=== PATIENT | male | born 1965 | race African-American/Black ===

== ENCOUNTER 2016-05-24 20:02 | Inpatient (IN) | payer OTHER ==
[~2016-05-24] VITALS: Ht 170.2 cm; Wt 103.0 kg
[~2016-05-24 20:02] MED LIST: ADVAIR 500/501 DISK IH; ALDACTONE25 MG PO; AMIODARONE HCL200 MG PO; AMMONIUM LACTA140 GM TP; AMOX TR-K CLV1 EAC4 PO; ASCORBIC ACID500 MG PO; ASPIR 8181 M1 PO; ATIVAN0.5 MG PO; ATROVENT 00.5 MG/2.5 IH; AUGMENTIN500 MG PO; AZITHROMYCIN500 M1 PO; Aldactone PO; Aranesp SC; BACTRIM,SEPT1 TABLET PO; Betapace,Sorine PO; CALCIUM 500 MG1 EACH PO; CALCIUM500 M4 PO; CARDIZEM CD,CA180 MG PO; CARDIZEM CD,CA240 MG PO; CARDIZEM CD180 MG PO; CARDIZEM CD300 MG PO; CARDIZEM LA180 MG PO; CARDIZEM60 MG PO; CARVEDILOL12.5 MG PO; CARVEDILOL25 MG PO; CARVEDILOL3.125 MG PO; CARVEDILOL6.25 MG PO; CELEXA20 MG PO; COLACE100 MG PO; COMBIVENT200 INHALA IH; Cardizem CD,Cartia X PO; Chronulac,Cephulac,E PO; Combivent IH; Coreg PO; DESYREL100 MG PO; DIGITEK125 MC2 PO; DIGITEK250 MC2 PO; DIGOX125 MCG PO; DIGOXIN125 MCG PO; DIGOXIN250 MCG PO; DULCOLAX10 MG PR; DULCOLAX5 MG PO; DUONEB 2.5-0.5 M3 ML AEROSOL; ECOTRIN325 MG PO; Ecotrin PO; FEOSOL325 MG PO; FERROUS SULFAT325 MG PO; FLEET ENEMA-AD118 ML PR; FLEET MINERAL133 ML PR; FLORASTOR250 MG PO; FOLIC ACID1 MG PO; FUROSEMIDE20 MG PO; FUROSEMIDE40 MG PO; Feosol PO; HEPARIN LO IV; HYDROPHOR OINT454 GM TP; IMODIUM MS REL1 EACH PO; INCRUSE ELLI62.5 MCG IH; IRON18 MG PO; IRON325 M1 PO; K-DUR20 MEQ PO; LASIX20 MG PO; LASIX40 MG PO; LEVAQUIN500 MG PO; LEVOFLOXACIN750 MG PO; LEVOTHYROXINE125 MCG PO; LISINOPRIL2.5 MG PO; LISINOPRIL5 MG PO; LITE COAT ASPI325 M1 PO; LOPRESSOR25 MG PO; LOVENOX40 MG/0.4 SC; MAG-OXIDE400 MG PO; METOPROLOL TART25 MG PO; METOPROLOL TART50 MG PO; METRONIDAZOLE500 MG PO; MILK OF MAGN PO; MUCINEX DM ER1 EACH PO; MUCINEX600 MG PO; NIFEREX-150,FE150 MG PO; OCEAN NASAL 0.645 ML BOTH NARES; OXYCODONE HCL15 MG PO; OXYCODONE HCL5 MG PO; OXYCODONE-APAP1 EACH PO; PANTOPRAZOLE SO40 MG PO; PERCOCET 10/1 TABLET PO; PERIDEX1 ML MM; PHILLIPS'400 MG/5 M PO; PREDNISONE10 MG PO; PREDNISONE20 MG PO; PROAIR HFA8.5 GM IH; PROTONIX40 MG PO; PROVENTIL,2.5 MG/3 M IH; Provigil PO; ROXICODONE15 MG PO; SALINE NASAL SP45 ML BOTH NARES; SALINE NOSE SPR45 M1 BOTH NARES; SEROQUEL50 MG PO; SERTRALINE HCL100 MG PO; SPIRIVA RESPIMAT4 GM IH; SPIRIVA1 INHALATI IH; SPIRONOLACTONE25 MG PO; SYMBICORT60 INHALA1 IH; SYMBICORT60 INHALAT IH; TIAZAC300 MG PO; TRAZODONE HCL50 MG PO; TYLENOL REGULA325 MG PO; ULTRA A-D2 MG PO; VANCOMYCIN1 GM/150 M IV; VANCOMYCIN750 MG/151 IV; VENTOLIN HFA18 GM IH; VITAMIN D-32000 UNI2 PO; VITAMIN D22000 UNIT PO; VITAMIN D31000 UNI2 PO; VITAMIN D31000 UNIT PO; XARELTO20 MG PO; Xopenex HFA Inhaler IH; ZESTRIL2.5 MG PO; ZITHROMAX250 MG PO; ZOFRAN4 MG PO; ZOLOFT100 MG PO; ZOLOFT25 MG PO; ZOLOFT50 MG PO; Zyvox PO
[2016-05-24 20:37] LABS: HEMATOCRIT 24.4 % (38.0-50.0); MCH 22.8 PG (29.0-34.0); MCHC 29.5 G/DL (30.0-36.0); MCV 77.2 FL (86-99); MEAN PLAT.VOLUME 9.6 uM^3 (9.0-12.4); NRBC (%) 0.1 /100 WBC (0-0); PLATELET COUNT 247 K/uL (156-360); RBC DIS.WIDTH-CV 17.5 % (11.8-14.6); RBC DIS.WIDTH-SD 48.8 % (39-53); RED BLOOD COUNT 3.16 M/uL (4.00-5.50); WHITE BLOOD COUNT 26.3 K/uL (4.1-10.2)
[2016-05-24 20:46] LABS: CHLORIDE 95 mEq/L (99-109); POTASSIUM 3.7 mEq/L (3.7-5.4); SODIUM 136 mEq/L (136-147)
[2016-05-24 20:48] LABS: GLUCOSE 101 mg/dL (70-99)
[2016-05-24 20:49] LABS: ANION GAP 9 MEQ/L (2-14)
[2016-05-24 20:52] LABS: GFR ESTIMATE (CALCULATED) > 59 mL/min/
[2016-05-24 20:53] LABS: UREA NITROGEN (BUN) 16 mg/dL (9-23)
[2016-05-24 20:54] LABS: D-DIMER ELISA 2.52 mg/L FEU (< 0.57)
[2016-05-24 20:59] LABS: TROP-I INTERPRETATION NEGATIVE; TROPONIN-I 0.01 ng/mL (0.0-0.30)
[2016-05-24] MEDS ORDERED: ZOLOFT100 MG PO (22:25)
[2016-05-24] MEDS ORDERED: AMIODARONE HCL200 MG PO (22:26)
[2016-05-24] MEDS ORDERED: DALIRESP500 MCG PO (22:26)
[2016-05-25] VITALS (13 sets, daily range): BP systolic 91–119; BP diastolic 49–69
[2016-05-25 01:39] LABS: C DIFF TOXIN NEGATIVE (NEGATIVE); PROBE CHECK PASS; SPECIMEN PROCESSING CONTROL PASS
[2016-05-25 03:08] LABS: METH RESISTANT S AUREUS PCR POSITIVE (NEGATIVE)
[2016-05-25 03:10] LABS: PROBE CHECK PASS
[2016-05-25 13:10] LABS: MEAN PLAT.VOLUME 10.9 uM^3 (9.0-12.4); PLATELET COUNT 208 K/uL (156-360)
[2016-05-25 13:35] LABS: MCH 23.8 PG (29.0-34.0); MCHC 29.7 G/DL (30.0-36.0); MCV 80.2 FL (86-99); NRBC (%) 0.1 /100 WBC (0-0); RBC DIS.WIDTH-CV 17.7 % (11.8-14.6); RBC DIS.WIDTH-SD 51.7 % (39-53); RED BLOOD COUNT 3.74 M/uL (4.00-5.50)
[2016-05-25 13:36] LABS: ANION GAP 7 MEQ/L (2-14); CHLORIDE 92 MEQ/L (99-109); GFR ESTIMATE (CALCULATED) > 59 mL/min/; GLUCOSE 141 mg/dL (70-99); SAMPLE HEMOLYSIS CHECK 0; SAMPLE ICTERIC CHECK 0; SAMPLE LIPEMIA CHECK 0; SODIUM 131 MEQ/L (136-147); UREA NITROGEN (BUN) 19 mg/dL (9-23)
[2016-05-25 13:40] LABS: WHITE BLOOD COUNT 34.3 K/uL (4.1-10.2)
[2016-05-25 15:45] LABS: IRON 12 MCG/DL (35-150)
[2016-05-25 16:10] LABS: INTER. NORMALIZED RATIO 1.2; PROTHROMBIN TIME 12.6 (9.2-11.2); PTT 41.4 (25-32)
[2016-05-25 21:43] LABS: INFLUENZA A VIRAL ANTIGEN NEGATIVE; INFLUENZA B VIRAL ANTIGEN NEGATIVE
[2016-05-26 04:38] VITALS: BP 115/55
[2016-05-26 07:15] VITALS: BP 127/59
[2016-05-26 07:19] LABS: ALKALINE PHOSPHATASE 114 IU/L (3-129); ANION GAP 6 MEQ/L (2-14); CHLORIDE 91 MEQ/L (99-109); GFR ESTIMATE (CALCULATED) > 59 mL/min/; GLUCOSE 115 mg/dL (70-99); MAGNESIUM 1.7 mg/dl (1.3-2.7); POTASSIUM 4.4 MEQ/L (3.7-5.4); SAMPLE HEMOLYSIS CHECK 0; SAMPLE ICTERIC CHECK 0; SAMPLE LIPEMIA CHECK 0; SODIUM 133 MEQ/L (136-147); TOTAL BILIRUBIN 0.3 MG/DL (0.0-1.0); UREA NITROGEN (BUN) 27 mg/dL (9-23)
[2016-05-26 07:45] LABS: EOSINOPHIL (%) 0 % (0-5); HEMATOCRIT 25.5 % (38.0-50.0); IMMATURE GRANULOCYTE (%) 2.5 % (0.0-0.7); IMMATURE GRANULOCYTE COUNT 0.5 K/uL; INSTRUMENT ABS NEUTROPHIL CT 17.7 K/uL; LYMPHOCYTE COUNT 0.4 K/uL (1.0-2.8); MCH 23.1 PG (29.0-34.0); MCHC 29.4 G/DL (30.0-36.0); MCV 78.7 FL (86-99); MEAN PLAT.VOLUME 10.8 uM^3 (9.0-12.4); MONOCYTE (%) 3.1 % (3-12); MONOCYTE COUNT 0.6 K/uL (0-0.8); NEUTROPHIL (%) 92.4 % (45-76); NEUTROPHIL COUNT 17.7 K/uL (1.8-6.4); NRBC (%) 0.2 /100 WBC (0-0); PLAT.SUFFICIENCY ADEQUATE; PLATELET COUNT 200 K/uL (156-360); RBC DIS.WIDTH-CV 18.1 % (11.8-14.6); RBC DIS.WIDTH-SD 52.2 % (39-53); RED BLOOD COUNT 3.24 M/uL (4.00-5.50)
[2016-05-26 07:58] LABS: INTERNAL CONTROL VALID? YES
[2016-05-26 08:02] LABS: WHITE BLOOD COUNT 19.1 K/uL (4.1-10.2)
[2016-05-26 12:22] VITALS: BP 130/62
[2016-05-26 16:45] VITALS: BP 119/63
[2016-05-26 19:43] VITALS: BP 124/60
[2016-05-26 22:45] VITALS: BP 116/57
[2016-05-27] VITALS (7 sets, daily range): BP systolic 108–140; BP diastolic 55–76
[2016-05-27 06:24] LABS: HEMATOCRIT 25.1 % (38.0-50.0); MCHC 29.1 G/DL (30.0-36.0); MCV 79.2 FL (86-99); MEAN PLAT.VOLUME 10.6 uM^3 (9.0-12.4); NRBC (%) 0.4 /100 WBC (0-0); PLATELET COUNT 188 K/uL (156-360); RBC DIS.WIDTH-CV 18.7 % (11.8-14.6); RBC DIS.WIDTH-SD 53.7 % (39-53); RED BLOOD COUNT 3.17 M/uL (4.00-5.50)
[2016-05-27 06:38] LABS: ANION GAP 3 MEQ/L (2-14); CHLORIDE 92 MEQ/L (99-109); GFR ESTIMATE (CALCULATED) > 59 mL/min/; GLUCOSE 125 mg/dL (70-99); POTASSIUM 5.1 MEQ/L (3.7-5.4); SAMPLE HEMOLYSIS CHECK 0; SAMPLE ICTERIC CHECK 0; SAMPLE LIPEMIA CHECK 0; SODIUM 134 MEQ/L (136-147); UREA NITROGEN (BUN) 32 mg/dL (9-23)
[2016-05-27 06:40] LABS: WHITE BLOOD COUNT 9.2 K/uL (4.1-10.2)
[2016-05-27 10:32] LABS: POC NON-PRINT COM 1 ND
[2016-05-28 04:45] VITALS: BP 127/62
[2016-05-28 07:30] VITALS: BP 131/62
[2016-05-28 07:34] LABS: HEMATOCRIT 28.4 % (38.0-50.0); MCH 23.6 PG (29.0-34.0); MCHC 28.9 G/DL (30.0-36.0); MCV 81.6 FL (86-99); MEAN PLAT.VOLUME 10.2 uM^3 (9.0-12.4); NRBC (%) 0.3 /100 WBC (0-0); PLATELET COUNT 196 K/uL (156-360); RBC DIS.WIDTH-CV 18.8 % (11.8-14.6); RBC DIS.WIDTH-SD 55.9 % (39-53); RED BLOOD COUNT 3.48 M/uL (4.00-5.50); WHITE BLOOD COUNT 11.3 K/uL (4.1-10.2)
[2016-05-28 08:00] LABS: ALKALINE PHOSPHATASE 110 IU/L (3-129); ANION GAP ND MEQ/L (2-14); CHLORIDE 91 MEQ/L (99-109); GFR ESTIMATE (CALCULATED) > 59 mL/min/; GLUCOSE 99 mg/dL (70-99); MAGNESIUM 1.7 mg/dl (1.3-2.7); POTASSIUM 5.4 MEQ/L (3.7-5.4); SAMPLE HEMOLYSIS CHECK 0; SAMPLE ICTERIC CHECK 0; SAMPLE LIPEMIA CHECK 0; SODIUM 135 MEQ/L (136-147); TOTAL BILIRUBIN 0.3 MG/DL (0.0-1.0); UREA NITROGEN (BUN) 35 mg/dL (9-23)
[2016-05-28 08:01] LABS: CARBON DIOXIDE (BICARBONATE) > 40.0 MEQ/L (20-31)
[2016-05-28 09:32] LABS: ABS NEUTROPHIL COUNT 9.8; ANISOCYTOSIS 1+; ATYPICAL LYMPHOCYTE 0.9 %; EOSINOPHIL ABS CT 0; INSTRUMENT ABS NEUTROPHIL CT 8.8 K/uL; MYELOCYTES 3.5 %; PLAT.SUFFICIENCY ADEQUATE; SEG.NEUTROPHILS 86.8 % (46.0-76.0); SMUDGE CELLS 0.9; STOMATOCYTES 1+; TARGET CELLS 1+
[2016-05-28 12:01] VITALS: BP 120/56
[2016-05-28 16:14] VITALS: BP 123/72
[2016-05-28 17:39] LABS: HCV RNA (IU/mL) <15 IU/mL (<15)
[2016-05-28 20:37] VITALS: BP 139/66
[2016-05-29 04:19] VITALS: BP 137/65
[2016-05-29 12:08] LABS: HCV RNA (LOG IU/mL) <1.18 (<1.18)
[2016-05-29 16:00] VITALS: BP 103/53
[2016-05-29 19:38] VITALS: BP 135/63
[2016-05-29 23:30] VITALS: BP 134/61
[2016-05-30 04:25] VITALS: BP 136/63
[2016-05-30 08:22] VITALS: BP 120/56
[2016-05-30 11:59] VITALS: BP 113/55
[2016-05-30 18:02] VITALS: BP 105/56
[2016-05-30 19:31] VITALS: BP 106/53
[2016-05-31 00:23] VITALS: BP 109/53
[2016-05-31 04:40] VITALS: BP 114/54
[2016-05-31 08:21] LABS: HEMATOCRIT 27.9 % (38.0-50.0); MCH 23.3 PG (29.0-34.0); MCV 80.4 FL (86-99); MEAN PLAT.VOLUME 9.7 uM^3 (9.0-12.4); RBC DIS.WIDTH-CV 19.9 % (11.8-14.6); RBC DIS.WIDTH-SD 57.2 % (39-53); RED BLOOD COUNT 3.47 M/uL (4.00-5.50)
[2016-05-31 08:40] LABS: PLATELET COUNT 296 K/uL (156-360); WHITE BLOOD COUNT 18.6 K/uL (4.1-10.2)
[2016-05-31 08:52] LABS: ANION GAP ND MEQ/L (2-14); CHLORIDE 89 MEQ/L (99-109); GFR ESTIMATE (CALCULATED) > 59 mL/min/; GLUCOSE 74 mg/dL (70-99); POTASSIUM 4.9 MEQ/L (3.7-5.4); SAMPLE HEMOLYSIS CHECK 0; SAMPLE ICTERIC CHECK 0; SAMPLE LIPEMIA CHECK 0; SODIUM 140 MEQ/L (136-147); UREA NITROGEN (BUN) 19 mg/dL (9-23)
[2016-05-31 08:54] LABS: CARBON DIOXIDE (BICARBONATE) > 40.0 MEQ/L (20-31)
[2016-05-31 09:35] VITALS: BP 121/58
[2016-05-31] MEDS ORDERED: LEVAQUIN750 MG PO (17:09)
[2016-05-31 18:39] VITALS: BP 128/58
== END 2016-05-31 18:26 | disposition home health service (06) | DRG 871 ==
LOC: EME → EDBD 20:02 → EME 20:02 → EDOF 05-25 00:06 → 4EAST 05-25 00:06
PROVIDERS: Emergency Medicine; Family Medicine; Internal Medicine; Physician Assistant; Specialist
PROC: 30233N1 Transfusion of Nonautologous Red Blood Cells into Peripheral Vein, Percutaneous Approach (ICD-10-PCS; principal; 2016-05-25)
DX: A41.51 Sepsis due to Escherichia coli [E. coli] (principal); J96.01 Acute respiratory failure with hypoxia; J96.02 Acute respiratory failure with hypercapnia; J15.5 Pneumonia due to Escherichia coli; K92.2 Gastrointestinal hemorrhage, unspecified; J44.1 Chronic obstructive pulmonary disease with (acute) exacerbation; I42.9 Cardiomyopathy, unspecified; K76.6 Portal hypertension; D62 Acute posthemorrhagic anemia; I50.22 Chronic systolic (congestive) heart failure; I48.2 Chronic atrial fibrillation; R16.1 Splenomegaly, not elsewhere classified; I08.1 Rheumatic disorders of both mitral and tricuspid valves; Z99.81 Dependence on supplemental oxygen; E66.01 Morbid (severe) obesity due to excess calories; I27.2 Other secondary pulmonary hypertension; I89.0 Lymphedema, not elsewhere classified; L73.2 Hidradenitis suppurativa; K52.9 Noninfective gastroenteritis and colitis, unspecified; B19.20 Unspecified viral hepatitis C without hepatic coma; E03.9 Hypothyroidism, unspecified; D53.9 Nutritional anemia, unspecified; T14.8 Other injury of unspecified body region; Z68.35 Body mass index [BMI] 35.0-35.9, adult; K21.9 Gastro-esophageal reflux disease without esophagitis
CPT/HCPCS: 71010; 71275; 74241; 76705; 80048; 80053; 82272; 82607; 82746; 82803; 83540; 83605; 83735; 83880; 84466; 84484; 85025; 85027; 85379; 85610; 85730; 86850; 86900; 86901; 86920; 87040; 87070; 87077; 87177; 87186; 87205; 87449; 87493; 87502; 87506; 87522 90; 87641; 87801; 93005; 93970; 94640; 94640 76; 94799; 99202; 99281; 99285; C9113; J0456; J1100; J1756; J1940; J2185; J2543; J2930; J7050; J7512; J7644; P9016

== ENCOUNTER 2016-12-06 13:13 | Inpatient (IN) | payer OTHER ==
[~2016-12-06] VITALS: Ht 170.2 cm; Wt 96.2 kg
[~2016-12-06 13:13] MED LIST changes: +DALIRESP500 MCG PO; +LEVAQUIN750 MG PO
[2016-12-06 14:55] LABS: CARBON DIOXIDE (BICARBONATE) > 40.0 MEQ/L (20-31); VENOUS PCO2 77 mm Hg (41-51)
[2016-12-06 14:57] LABS: CHLORIDE 97 mEq/L (99-109); POTASSIUM 4.2 mEq/L (3.7-5.4); SODIUM 135 mEq/L (136-147)
[2016-12-06 15:00] LABS: GLUCOSE 113 mg/dL (70-99); MCH 19.6 PG (29.0-34.0); MCHC 28.1 G/DL (30.0-36.0); MCV 69.8 FL (86-99); MEAN PLAT.VOLUME 8.9 uM^3 (9.0-12.4); PLATELET COUNT 633 K/uL (156-360); RBC DIS.WIDTH-SD 47.5 % (39-53); RED BLOOD COUNT 3.01 M/uL (4.00-5.50); WHITE BLOOD COUNT 15.5 K/uL (4.1-10.2)
[2016-12-06 15:01] LABS: ANION GAP 7 MEQ/L (2-14)
[2016-12-06 15:02] LABS: TOTAL BILIRUBIN 0.2 mg/dL (0.0-1.0)
[2016-12-06 15:03] LABS: ALKALINE PHOSPHATASE 165 IU/L (3-129)
[2016-12-06 15:04] LABS: GFR ESTIMATE (CALCULATED) > 59 mL/min/
[2016-12-06 15:05] LABS: DIRECT BILIRUBIN 0.1 mg/dL (0.0-0.3); UREA NITROGEN (BUN) 8 mg/dL (9-23)
[2016-12-06 15:07] LABS: LIPASE 8 U/L (1.0-51.0)
[2016-12-06 15:09] LABS: TROP-I INTERPRETATION NEGATIVE; TROPONIN-I < 0.01 ng/mL (0.0-0.30)
[2016-12-06 16:10] LABS: DIGOXIN 0.6 ng/mL (0.8-2.0)
[2016-12-06 17:00] VITALS: BP 99/51
[2016-12-06 20:09] VITALS: BP 112/54
[2016-12-06 22:17] VITALS: BP 110/56
[2016-12-06 22:32] VITALS: BP 99/51
[2016-12-06 23:28] VITALS: BP 108/53
[2016-12-07] VITALS (12 sets, daily range): BP systolic 94–128; BP diastolic 50–67
[2016-12-07 06:13] LABS: ANION GAP 2 MEQ/L (2-14); CHLORIDE 95 MEQ/L (99-109); GFR ESTIMATE (CALCULATED) > 59 mL/min/; GLUCOSE 117 mg/dL (70-99); POTASSIUM 4.8 MEQ/L (3.7-5.4); SAMPLE HEMOLYSIS CHECK 0; SAMPLE ICTERIC CHECK 0; SAMPLE LIPEMIA CHECK 0; SODIUM 130 MEQ/L (136-147); UREA NITROGEN (BUN) 10 mg/dL (9-23)
[2016-12-07 06:17] LABS: HEMATOCRIT 21.3 % (38.0-50.0); MCH 20.9 PG (29.0-34.0); MCHC 29.1 G/DL (30.0-36.0); MEAN PLAT.VOLUME 9.2 uM^3 (9.0-12.4); PLATELET COUNT 545 K/uL (156-360); RBC DIS.WIDTH-SD 52.2 % (39-53); RED BLOOD COUNT 2.96 M/uL (4.00-5.50); WHITE BLOOD COUNT 14.8 K/uL (4.1-10.2)
[2016-12-08 03:00] VITALS: BP 115/56
[2016-12-08 06:16] LABS: EOSINOPHIL (%) 0.8 % (0-5); EOSINOPHIL COUNT 0.1 K/uL (0-0.3); HEMATOCRIT 22.8 % (38.0-50.0); IMMATURE GRANULOCYTE (%) 0.7 % (0.0-0.7); IMMATURE GRANULOCYTE COUNT 0.1 K/uL; INSTRUMENT ABS NEUTROPHIL CT 12.3 K/uL; LYMPHOCYTE COUNT 1.1 K/uL (1.0-2.8); MCH 22.8 PG (29.0-34.0); MCHC 31.1 G/DL (30.0-36.0); MCV 73.1 FL (86-99); MONOCYTE (%) 6.5 % (3-12); NEUTROPHIL (%) 84.5 % (45-76); NEUTROPHIL COUNT 12.3 K/uL (1.8-6.4); PLATELET COUNT 573 K/uL (156-360); RBC DIS.WIDTH-CV 20.6 % (11.8-14.6); RBC DIS.WIDTH-SD 54.1 % (39-53); RED BLOOD COUNT 3.12 M/uL (4.00-5.50); WHITE BLOOD COUNT 14.6 K/uL (4.1-10.2)
[2016-12-08 06:17] LABS: ANION GAP 4 MEQ/L (2-14); CHLORIDE 94 MEQ/L (99-109); GFR ESTIMATE (CALCULATED) > 59 mL/min/; GLUCOSE 100 mg/dL (70-99); MAGNESIUM 1.8 mg/dl (1.3-2.7); POTASSIUM 4.3 MEQ/L (3.7-5.4); SAMPLE HEMOLYSIS CHECK 0; SAMPLE ICTERIC CHECK 0; SAMPLE LIPEMIA CHECK 0; SODIUM 132 MEQ/L (136-147); UREA NITROGEN (BUN) 13 mg/dL (9-23)
[2016-12-08 08:25] VITALS: BP 11/52; BP 111/52
[2016-12-08 08:47] LABS: TROP-I INTERPRETATION NEGATIVE; TROPONIN-I < 0.01 ng/mL (0.0-0.30)
[2016-12-08 12:20] VITALS: BP 94/44
[2016-12-08 15:48] VITALS: BP 98/51
[2016-12-08 20:12] VITALS: BP 106/59
[2016-12-08 23:55] VITALS: BP 100/54
[2016-12-09] VITALS (13 sets, daily range): BP systolic 99–141; BP diastolic 52–72
[2016-12-09 06:19] LABS: EOSINOPHIL (%) 1.3 % (0-5); EOSINOPHIL COUNT 0.2 K/uL (0-0.3); HEMATOCRIT 22.6 % (38.0-50.0); IMMATURE GRANULOCYTE (%) 0.4 % (0.0-0.7); IMMATURE GRANULOCYTE COUNT 0.1 K/uL; INSTRUMENT ABS NEUTROPHIL CT 10.4 K/uL; LYMPHOCYTE COUNT 1.1 K/uL (1.0-2.8); MCH 21.7 PG (29.0-34.0); MCHC 29.2 G/DL (30.0-36.0); MCV 74.3 FL (86-99); MEAN PLAT.VOLUME 9.4 uM^3 (9.0-12.4); MONOCYTE (%) 6.9 % (3-12); MONOCYTE COUNT 0.9 K/uL (0-0.8); NEUTROPHIL (%) 82.5 % (45-76); NEUTROPHIL COUNT 10.4 K/uL (1.8-6.4); PLATELET COUNT 461 K/uL (156-360); RBC DIS.WIDTH-CV 20.7 % (11.8-14.6); RBC DIS.WIDTH-SD 55.8 % (39-53); RED BLOOD COUNT 3.04 M/uL (4.00-5.50); WHITE BLOOD COUNT 12.7 K/uL (4.1-10.2)
[2016-12-09 09:34] LABS: ANION GAP 2 MEQ/L (2-14); CHLORIDE 95 MEQ/L (99-109); GFR ESTIMATE (CALCULATED) > 59 mL/min/; GLUCOSE 90 mg/dL (70-99); POTASSIUM 4.7 MEQ/L (3.7-5.4); SAMPLE HEMOLYSIS CHECK 0; SAMPLE ICTERIC CHECK 0; SAMPLE LIPEMIA CHECK 0; SODIUM 134 MEQ/L (136-147); UREA NITROGEN (BUN) 17 mg/dL (9-23)
[2016-12-09 20:09] LABS: HEMATOCRIT 28.1 % (38.0-50.0); MCH 22.8 PG (29.0-34.0); MCHC 29.9 G/DL (30.0-36.0); MCV 76.4 FL (86-99); PLATELET COUNT 446 K/uL (156-360); RBC DIS.WIDTH-CV 20.2 % (11.8-14.6); WHITE BLOOD COUNT 16.8 K/uL (4.1-10.2)
[2016-12-09 20:10] LABS: RED BLOOD COUNT 3.68 M/uL (4.00-5.50)
[2016-12-10 00:15] VITALS: BP 119/61
[2016-12-10 07:26] VITALS: BP 108/56
[2016-12-10 09:53] LABS: HEMATOCRIT 28.4 % (38.0-50.0); MCHC 29.9 G/DL (30.0-36.0); MEAN PLAT.VOLUME 9.2 uM^3 (9.0-12.4); PLATELET COUNT 442 K/uL (156-360); RBC DIS.WIDTH-CV 20.4 % (11.8-14.6); RBC DIS.WIDTH-SD 56.8 % (39-53); RED BLOOD COUNT 3.69 M/uL (4.00-5.50); WHITE BLOOD COUNT 14.5 K/uL (4.1-10.2)
[2016-12-10 10:26] LABS: ANION GAP 2 MEQ/L (2-14); CHLORIDE 92 MEQ/L (99-109); GFR ESTIMATE (CALCULATED) > 59 mL/min/; GLUCOSE 105 mg/dL (70-99); POTASSIUM 4.4 MEQ/L (3.7-5.4); SAMPLE HEMOLYSIS CHECK 0; SAMPLE ICTERIC CHECK 0; SAMPLE LIPEMIA CHECK 0; SODIUM 132 MEQ/L (136-147); UREA NITROGEN (BUN) 16 mg/dL (9-23)
[2016-12-10 11:13] VITALS: BP 104/55
[2016-12-10 15:37] VITALS: BP 106/54
[2016-12-10 19:43] VITALS: BP 113/56
[2016-12-10 23:28] VITALS: BP 107/55
[2016-12-11 03:29] VITALS: BP 104/51
[2016-12-11 08:24] VITALS: BP 97/52
[2016-12-11 09:31] LABS: HEMATOCRIT 29.5 % (38.0-50.0); MCH 22.6 PG (29.0-34.0); MCHC 29.2 G/DL (30.0-36.0); MCV 77.6 FL (86-99); MEAN PLAT.VOLUME 9.4 uM^3 (9.0-12.4); PLATELET COUNT 446 K/uL (156-360); RBC DIS.WIDTH-CV 20.9 % (11.8-14.6); RBC DIS.WIDTH-SD 58.4 % (39-53); WHITE BLOOD COUNT 13.8 K/uL (4.1-10.2)
[2016-12-11 10:16] LABS: ANION GAP 2 MEQ/L (2-14); CHLORIDE 94 MEQ/L (99-109); GFR ESTIMATE (CALCULATED) > 59 mL/min/; GLUCOSE 124 mg/dL (70-99); POTASSIUM 4.9 MEQ/L (3.7-5.4); SAMPLE HEMOLYSIS CHECK 0; SAMPLE ICTERIC CHECK 0; SAMPLE LIPEMIA CHECK 0; SODIUM 133 MEQ/L (136-147); UREA NITROGEN (BUN) 13 mg/dL (9-23)
[2016-12-11 12:02] VITALS: BP 104/64
[2016-12-11] MEDS ORDERED: LOTRISONE15 GM TP (13:29)
[2016-12-11] MEDS ORDERED: LIDOCAINE700 MG TP (13:30)
[2016-12-11] MEDS ORDERED: LOTRIMIN AF133 GM TP (15:05)
[2016-12-11] MEDS ORDERED: LIDOCARE1 EACH TP (15:05)
== END 2016-12-11 16:52 | disposition home or self-care (01) | DRG 194 ==
LOC: EME → EDBD 13:13 → 5SOUTH 15:43 → 4EAST 15:43 → EDOF 15:43 → ENRESERV 15:44 → 4EAST 16:50 → ENRESERV 12-08 16:46 → 5SOUTH 12-08 19:58
PROVIDERS: Emergency Medicine; Family Medicine; Internal Medicine
PROC: 30233N1 Transfusion of Nonautologous Red Blood Cells into Peripheral Vein, Percutaneous Approach (ICD-10-PCS; principal; 2016-12-06)
DX: J18.9 Pneumonia, unspecified organism (principal); D62 Acute posthemorrhagic anemia; J44.0 Chronic obstructive pulmonary disease with (acute) lower respiratory infection; J96.11 Chronic respiratory failure with hypoxia; I50.42 Chronic combined systolic (congestive) and diastolic (congestive) heart failure; K74.60 Unspecified cirrhosis of liver; I48.2 Chronic atrial fibrillation; I27.81 Cor pulmonale (chronic); I27.29 Other secondary pulmonary hypertension; L98.419 Non-pressure chronic ulcer of buttock with unspecified severity; L73.2 Hidradenitis suppurativa; I11.0 Hypertensive heart disease with heart failure; Z99.81 Dependence on supplemental oxygen; E03.9 Hypothyroidism, unspecified; B19.20 Unspecified viral hepatitis C without hepatic coma; I89.0 Lymphedema, not elsewhere classified; E66.9 Obesity, unspecified; F17.200 Nicotine dependence, unspecified, uncomplicated; Z68.31 Body mass index [BMI] 31.0-31.9, adult; R79.1 Abnormal coagulation profile; Z79.899 Other long term (current) drug therapy; Z87.01 Personal history of pneumonia (recurrent); Z79.51 Long term (current) use of inhaled steroids; Z79.01 Long term (current) use of anticoagulants; Z83.3 Family history of diabetes mellitus; Z80.0 Family history of malignant neoplasm of digestive organs
CPT/HCPCS: 71020; 71275; 74177; 80048; 80076; 80162; 81003; 82803; 83605; 83690; 83735; 83880; 84484; 85025; 85027; 85379; 86850; 86900; 86901; 86920; 87040; 87449; 93005; 94640; 94640 76; 94799; 99202; 99281; 99285; J0456; J0696; J1100; J1885; J7050; J7644; P9016